=== PATIENT | male | born 1995 | race Caucasian/White ===

== ENCOUNTER 2019-10-16 20:56 | Emergency (ER) | payer BC ==
[~2019-10-16] VITALS: Ht 162.6 cm; Wt 68.0 kg
[2019-10-16 21:15] VITALS: BP 146/74; Ht 162.6 cm; Wt 68.0 kg
== END 2019-10-16 22:36 | disposition home or self-care (01) ==
LOC: ED 20:56
DX: T78.1XXA Other adverse food reactions, not elsewhere classified, initial encounter (principal); X58.XXXA Exposure to other specified factors, initial encounter
CPT/HCPCS: J2920; Q0163